=== PATIENT | female | born 1995 | race Asian ===

== ENCOUNTER 2017-07-28 15:17 | Emergency (ER) | payer BC ==
[~2017-07-28 15:17] MED LIST: VITAMINS; [UNRECOGNIZED DRUG - REMARK]
[2017-07-28 15:22] VITALS: TEMP 36.9; Ht 160 cm
[2017-07-28] MEDS ORDERED: B-COTAB18 PO (16:15)
[2017-07-28] MEDS ORDERED: MULT-506 PO (16:15)
[2017-07-28] MEDS ORDERED: OYST500T47 PO (16:15)
[2017-07-28] MEDS ORDERED: PROP10TA7 PO (16:18)
[2017-07-28] MEDS ORDERED: ACETAMINOPHEN 500 MG TAB PO STA (16:27)
[2017-07-28] MEDS ORDERED: ONDANSETRON 4MG OD TAB PO ONE (16:30)
--- NOTE | 2017-07-28 17:16 | DIAGNOSTIC IMAGING REPORT ---
CT OF THE HEAD WITHOUT CONTRAST CLINICAL HISTORY: Closed head injury with persistent symptoms. COMPARISON STUDY: MRI of the brain September 08, 2014. CT DOSE: 537.48 mGy.cm TECHNIQUE: Helical axial images of the head were obtained without IV contrast. Automated exposure control was utilized for the study. A dose lowering technique was utilized adhering to the principles of ALARA. FINDINGS: No acute intracranial hemorrhage, midline shift or mass effect is present. Ventricular system is normal. The basilar cisterns are patent. There are no extra-axial collections. Grey-white differentiation is maintained. There are no findings to suggest acute dural sinus thrombosis or acute territorial infarct. There is no calvarial fracture. Visualized portions of the sinuses and mastoid air cells are clear. IMPRESSION: 1. No acute intracranial findings. 2. No calvarial fracture. Electronically signed by: Rainer Sarkar M.D. 07/28/2017 5:15 PM Dictated Date/Time: 07/28/2017 5:12 PM
[2017-07-28 17:30] VITALS: BP 113/65; PULSE 73; O2SAT 98
[2017-07-28] MEDS ORDERED: ONDA4TAB10 SL (18:14)
[2017-07-28] MEDS ORDERED: TRAM-10 PO (18:14)
--- NOTE | 2017-07-28 21:48 | EMERGENCY ROOM VISIT NOTE ---
History First contact with patient: 16:17 Chief Complaint: HEAD INJURY (MINOR) Stated Complaint: CONCUSSION History of Present Illness The patient is a 22 year old female who presents to the Emergency Room with complaints of possible concussion symptoms after falling and hitting her head last night. The patient reports that she tripped and hit her head on a door frame. She was seen by her PCP and referred to the emergency department for further imaging studies. The patient denies any loss of consciousness. She reports a headache, photophobia, phonophobia and nausea. The patient has not taken any medicines today for her headache, and rates her discomfort a 6 out of 10. The patient has had a prior concussion. Review of Systems 10 system review was performed and was negative except for pertinent positives and negatives as indicated in history of present illness Past Medical/Surgical History Medical Problems: (1) Concussion Surgical Problems: (1) No history of previous surgery Family History FH: diabetes mellitus FH: heart disease FH: hypertension Social History Smoking Status: Never Smoker Alcohol Use: occasionally Marital Status: single Housing Status: lives with family Occupation Status: unemployed, [employer] student Current/Historical Medications Scheduled B-Complex Vitamins (Vitamin B Complex), 1 TAB PO DAILY Multivitamin (Multivitamin), 1 TAB PO DAILY Ondasetron Odt (Zofran Odt), 4 MG SL Q6H Oyster Shell (Calcium), 500 MG PO DAILY Propranolol (Inderal), 10 MG PO BID Scheduled PRN Tramadol (Ultram), 1 TAB PO Q4H PRN for Pain Physical Exam Vital Signs Date Time Temp Pulse Resp B/P (MAP) Pulse Ox O2 Delivery O2 Flow Rate FiO2 07/28/17 17:30 73 16 113/65 98 Room Air 07/28/17 15:22 18 07/28/17 15:22 36.9 87 18 117/77 98 Room Air Physical Exam CONSTITUTIONAL: Healthy and well nourished. Alert and oriented X 3 with positive affect. GCS 15. HEENT: Normocephalic, atraumatic. Pupils equal, round and reactive. Patient is photophobic, precluding funduscopic exam. NECK: Full active range of motion without discomfort. RESPIRATORY: Clear to auscultation bilaterally with no wheezing, crackles, rhonchi or stridor. CARDIOVASCULAR: Regular rate and rhythm with no murmurs, rubs or gallops. MUSCULOSKELETAL: Full range of motion of all joints without discomfort. INTEGUMENTARY: No rash or other significant dermatologic conditions noted. NEUROLOGIC: No focal neurologic deficits noted. Medical Decision & Procedures ER Provider Diagnostic Interpretation: Noncontrast CT of the head does not show any acute fractures or intracranial bleed. Radiologist report is as follows: CT OF THE HEAD WITHOUT CONTRAST CLINICAL HISTORY: Closed head injury with persistent symptoms. COMPARISON STUDY: MRI of the brain September 08, 2014. CT DOSE: 537.48 mGy.cm TECHNIQUE: Helical axial images of the head were obtained without IV contrast. Automated exposure control was utilized for the study. A dose lowering technique was utilized adhering to the principles of ALARA. FINDINGS: No acute intracranial hemorrhage, midline shift or mass effect is present. Ventricular system is normal. The basilar cisterns are patent. There are no extra-axial collections. Grey-white differentiation is maintained. There are no findings to suggest acute dural sinus thrombosis or acute territorial infarct. There is no calvarial fracture. Visualized portions of the sinuses and mastoid air cells are clear. IMPRESSION: 1. No acute intracranial findings. 2. No calvarial fracture. Medications Administered Medications (Trade) Dose Ordered Sig/Olya Route Start Time Stop Time Status Last Admin Dose Admin Ondansetron HCl (Zofran Odt) 4 mg ONE ONCE PO 07/28/17 16:30 07/28/17 16:31 DC 07/28/17 17:06 4 MG Acetaminophen (Tylenol Tab) 1,000 mg NOW STAT PO 07/28/17 16:27 07/28/17 16:29 DC 07/28/17 17:07 1,000 MG ED Course Patient history and physical exam were performed. Nurse's notes were reviewed. Vital signs were reviewed and were normal. The patient was administered Tylenol 1 g and Zofran ODT for her symptoms. Noncontrast CT of the head was normal. The patient was advised that she does have a concussion. A concussion handout was provided. The patient was instructed to limit activities for the next week until symptoms improve. Ibuprofen or Tylenol as needed for baseline pain relief. She was provided prescriptions for Ultram and Zofran ODT as needed for worse pain and nausea. I did encourage her to follow-up with her PCP as needed for further concussion management. 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 The patient and mother were happy with plan of care, and the patient rated her discomfort a 3 out of 10 at the conclusion of my exam. Medical Decision [place] Drug Monitoring Program Search Results: patient reviewed within database, no issues identified Head Trauma GCS Score: 15 Medication Reconcilliation Current Medication List: was personally reviewed by me Blood Pressure Screening Patient's blood pressure: Normal blood pressure Impression Primary Impression: Concussion Departure Information Dispostion Home / Self-Care Condition GOOD Prescriptions Ondasetron Odt (ZOFRAN ODT) 4 Mg Tab 4 MG SL Q6H for Nausea, #20 TAB Prov: Carlos Gutierrez PA 07/28/17 Tramadol (Ultram) 50 Mg Tab 1 TAB PO Q4H Y for Pain, #20 TAB For Initial Treatment Prov: Carlos Gutierrez PA 07/28/17 Referrals No Doctor, Assigned (PCP) Forms HOME CARE DOCUMENTATION FORM, IMPORTANT VISIT INFORMATION Patient Instructions Concussion, [facility] Additional Instructions Read concussion handout. Ibuprofen 600 mg and/or Tylenol 1000 mg every 8 hours. You may also alternate these medications for more effective pain relief: Ibuprofen --4 HRS--> Tylenol --4 HRS--> ibuprofen --4 HRS--> Tylenol .... Take Ultram if needed for additional pain relief. Zofran ODT if needed for nausea. Follow-up with your family doctor and/or [facility] as needed for further management. Return to the emergency department for any progressively worsening symptoms. FOR SCHOOL: Patient has a concussion. Please allow appropriate accommodations until concussion symptoms improve. Further care will be provided by family doctor. Problem Qualifiers Primary Impression: Concussion Encounter type: initial encounter Loss of consciousness presence/duration: without LOC Qualified Codes: S06.0X0A - Concussion without loss of consciousness, initial encounter
== END 2017-07-28 18:32 | disposition home or self-care (01) ==
LOC: C.EDB 15:18 → C.EDD 18:32
DX: S06.0X0A Concussion without loss of consciousness, initial encounter (principal); W01.0XXA Fall on same level from slipping, tripping and stumbling without subsequent striking against object, initial encounter; Z87.820 Personal history of traumatic brain injury; Z79.899 Other long term (current) drug therapy; Z83.3 Family history of diabetes mellitus; Z82.49 Family history of ischemic heart disease and other diseases of the circulatory system